=== PATIENT | female | born 1995 | race Caucasian/White ===

== ENCOUNTER 2016-12-31 13:32 | Emergency (ER) | payer OTHER ==
[2016-12-31 13:44] VITALS: BP 148/76
--- NOTE | 2016-12-31 14:19 | UC ---
Skin Complaint HPI - History of Current Complaint Chief Complaint: UCSkin Time Seen by Provider: 12/31/16 14:09 Stated Complaint: SKIN COMPLAINT Hx Obtained From: Patient Hx Last Menstrual Period: 12/14/16 ?: No Onset/Duration: Sudden Onset, Lasting Days - 2, Worse Since - today. Started on the arms, now on the legs as well. Timing: Constant Onset Severity: Mild Current Severity: Moderate Location: Discrete - on the distal arms and legs. Character: Pruritus, Redness, Raised Aggravating: Nothing Alleviating: Nothing Associated Signs & Symptoms: Positive: Rash Related History: Recent change in medication - Citalopram and atarax in the last month. - Allergy/Home Medications Allergies/Adverse Reactions: Allergies Allergy/AdvReac Type Severity Reaction Status Date / Time No Known Allergies Allergy Verified 12/31/16 13:44 Home Medications: Home Medications Al Hydrox/Mg Hydrox/Rosanne BULK* [Mylanta - BULK BOT*] 30 ml PO DAILY PRN [History Confirmed 12/31/16] Ygpjudo-Wqljnovkujiso-Sipmebos [Acetaminophen/Aspirin/Caf 250-250-65 mg] 1 tab PO Q4H PRN 12/31/16 [History Confirmed 12/31/16] Magnesium Hydroxide LIQ* [Milk of Magnesia LIQ*] 30 ml PO BEDTIME PRN 12/31/16 [ History Confirmed 12/31/16] hydrOXYzine HCL TAB* [Atarax 25 MG TAB*] 25 mg PO BEDTIME PRN 12/31/16 [History Confirmed 12/31/16] Review of Systems Skin: Rash Psychological: Anxious, Depressed All Other Systems Reviewed And Are Negative: Yes PMH/Surg Hx/FS Hx/Imm Hx Psychological History Of: Reports: Anxiety, Depression - Surgical History Surgical History: None - Family History Known Family History: Positive: Cardiac Disease, Hypertension, Diabetes - Social History Occupation: Disabled Lives: Prison Alcohol Use: None Substance Use Type: None Smoking Status (MU): Never Smoked Tobacco Have You Smoked in the Last Year: No - Immunization History Most Recent Influenza Vaccination: none Physical Exam Triage Information Reviewed: Yes Appearance: Well-Appearing, No Pain Distress, Well-Nourished Vital Signs: Initial Vital Signs Pulse 72 12/31/16 13:36 Resp 16 12/31/16 13:36 BP 148/76 12/31/16 13:36 Pulse Ox 99 03/18/17 13:36 Vital Signs Reviewed: Yes Eyes: Positive: Conjunctiva Clear ENT Exam: Normal Neck exam: Normal Respiratory Exam: Normal Cardiovascular Exam: Normal Abdomen Description: Positive: Nontender Musculoskeletal Exam: Normal Neurological Exam: Normal Psychological: Positive: Other: - mildly depressed affect Skin: Positive: rashes - circular erythematous plaques over the arms below the elbows and lower legs with one spot on the abdomen. Course/Dx - Differential Diagnoses - Skin Complaint Differential Diagnoses: Erythema Nodosum, Erythema Multiforme, Urticaria - Diagnoses Provider Diagnoses: Erythema multiforme Discharge - Discharge Plan Condition: Stable Disposition: HOME Prescriptions: Mirtazapine TAB* [Remeron TAB*] 15 mg PO BEDTIME #30 tab Patient Education Materials: Acute Rash (ED) Additional Instructions: Possibly due to the citalopram. Since it is not helping, will change to mirtazapine which will help with sleep and depression. If the rash gets worse please be seen again. It could be due to the hydroxyzine
== END 2016-12-31 14:46 | disposition home or self-care (01) ==
LOC: UCCORT 13:32
DX: L51.9 Erythema multiforme, unspecified (principal)
CPT/HCPCS: 99202; G0463